=== PATIENT | female | born 1955 | race Caucasian/White ===

== ENCOUNTER 2017-11-01 07:41 | Day surgery (SDC) | payer OTHER, SELFPAY ==
[2017-10-30 12:14] VITALS: BMI 46.7
--- NOTE | 2017-11-01 | DI.RAD.S_ITS ---
PROCEDURE: XR CHEST 1V INDICATIONS: PORTACATH TECHNIQUE: One view of the chest was acquired. COMPARISON: None. FINDINGS: Surgical changes and devices: Left port a cath is present, with distal tip overlying Lungs and pleura: Mild appearance of increased pulmonary vascularity. Mediastinum: Mediastinal contours appear normal. Heart size is normal. Bones and chest wall: No suspicious bony lesions. Overlying soft tissues appear unremarkable. IMPRESSION: Left port a catheter as above. Mild increased pulmonary vascularity, consistent with edema. Dictated by: Charisse Parham M.D. on 11/01/2017 at 10:10 Approved by: Charisse Parham M.D. on 11/01/2017 at 10:21
[2017-11-01 08:31] VITALS: BP 159/82; PULSE 86; RESP 16; TEMP 36.2; O2SAT 99; BMI 46.7
[2017-11-01] MEDS: LACTATED RINGERS 1,000 ML 42 ML IV (08:43)
[2017-11-01] MEDS: levoFLOXacin 500 MG/100 ML PIGGYBACK 100 MG IV (09:05)
--- NOTE | 2017-11-01 09:24 | SUR.OPER ---
Supine on padded OR bed, head on pillow, arm padded and tucked at left side, right arm secured on padded armboard, legs uncrossed, safety belt at thigh, tape over blanket over lower legs .
[2017-11-01] MEDS: LIDOCAINE 1% W/EPI INJ 20 ML INJ (09:31)
[2017-11-01] MEDS: BUPIVACAINE 0.5% (PF) VIAL 30 ML INJ (09:32)
--- NOTE | 2017-11-01 09:39 | PM.OP.1 ---
Operative Date/Time/Diagnoses Date of procedure: 11/01/17 Time of procedure: 09:40 Pre-op diagnosis: Severe iron-deficiency anemia requiring iron infusion Post-op diagnosis: same Procedure & Clinicians Procedure: Left subclavian power port placement Same procedure as scheduled: Yes Indications: Severe iron deficiency anemia requiring IV iron infusion Surgeon: Sima Molina Anesthesia Type: General (Ahsaei) and Local Operative Notes Findings: Left subclavian Power port in good position in the superior vena cava Closure Type: primary Specimen(s): none sent Implants & Drains: Power port Estimated Blood Loss (mL): 5 Blood products transfused: none Procedure in detail: After obtaining informed consent, the patient was brought to the operating room and placed in the supine position on the operating table. Following successful induction of general endotracheal anesthesia, appropriate padding of all bony prominences, and placement of appropriate monitors, the left chest was prepped and draped in a standard surgical fashion. A timeout was held per SCOAP protocol. A mixture of local anesthetics was infiltrated in the deltopectoral groove on the left side. The right subclavian vein was accessed via the Seldinger technique and a wire was gently placed into the vein. Fluoroscopy was used to verify position of the wire in the subclavian vein. We next created a pocket of approximately 2 cm inferior to the access site of the vein. This was checked for size and found to fit the port nicely. The included tunneling device was used to place the tubing and the pocket connecting it to the access site of the subclavian vein. The tubing was trimmed to an appropriate length and connected to the Port-A-Cath. The Port-A-Cath was sewn into place in the pocket using interrupted Prolene sutures. The pocket was closed in 2 layers. The dilator and introducer were then gently passed over the wire and into the subclavian vein. The wire and dilator were removed leaving only the introducer. The tubing was then placed in the introducer and the introducer removed per iron guardrail installer's directions. The port was then flushed with saline solution and found to be functional and in good position. It was then hep-locked with 2000 units of heparin. The incision was closed in 2 layers with Vicryl and Monocryl sutures. Dermabond was applied to the skin. All sponge, needle, and instrument counts were correct at the conclusion of the case. Patient was allowed to awaken from anesthesia and taken to the post-anesthesia care unit in good condition. Complications: none Condition: stable Disposition: PACU Plan for aftercare: 1. Discharge to home 2. The port is ready for use
--- NOTE | 2017-11-01 09:41 | SUR.OPER ---
PATIENT HAS MULTIPLE OPEN SORES OVER BODY, DR. COPE AWARE
[2017-11-01 09:46] VITALS: BP 161/85; PULSE 78; RESP 14; TEMP 36.1; O2SAT 93
--- NOTE | 2017-11-01 09:46 | P.HP_ITS ---
History of Present Illness Date Patient Seen: 11/01/17 Time Patient Seen: 09:44 Chief complaint: [id number] PORTACATH PLACEMENT Narrative: Severe iron deficiency anemia requiring IV iron infusion. This is in the setting of a multiple severe medical problems and disabilities. Patient History Medical History Adrenal insufficiency (Yinka's disease) (Acute) Anxiety and depression (Acute) Arthritis (Acute) Blindness of right eye (Acute) CAD (coronary artery disease) (Acute) CHF (congestive heart failure) (Acute) Chronic back pain (Acute) Chronic sinusitis (Acute) DJD (degenerative joint disease) (Acute) Diabetes (Acute) Disorder of brainstem (Acute) Fatty liver (Acute) GERD (gastroesophageal reflux disease) (Acute) Wander's syndrome (Acute) Hx of migraine headaches (Acute) Hyperlipidemia (Acute) IBS (irritable bowel syndrome) (Acute) Low blood magnesium level (Acute) Polycystic ovary disease (Acute) Pulmonary hypertension (Acute) Ludmila's disease (Acute) Trigeminal neuropathy (Acute) Surgical History H/O laparoscopy (Acute) History of bilateral cataract extraction (Acute) History of bilateral knee arthroplasty (Acute) History of carpal tunnel surgery of right wrist (Acute) History of laparotomy (Acute) History of total hysterectomy with bilateral salpingo-oophorectomy (BSO) (Acute) Hx of appendectomy (Acute) Hx of cholecystectomy (Acute) Hx of hernia repair (Acute) Hx of sinus surgery (Acute) Family & Social History Family History: Reviewed 11/01/17 by Sima Molina MD Social History: household members none Tobacco & Substance use: Smoking Status Current every day smoker alcohol intake current Meds Home Medications Medication Instructions Recorded Confirmed Type aspirin 2 tab PO QID 10/30/17 11/01/17 History esomeprazole magnesium 40 mg PO DAILY 10/30/17 11/01/17 History fluoxetine 20 mg PO DAILY 10/30/17 11/01/17 History fluticasone [Flovent HFA] 1 puff INHALATION BID 10/30/17 11/01/17 History furosemide 40 mg PO DAILY 10/30/17 11/01/17 History glimepiride 1 - 2 mg PO QAM 10/30/17 11/01/17 History metformin 500 mg PO BID 10/30/17 11/01/17 History metoprolol tartrate 50 mg PO BID 10/30/17 11/01/17 History potassium chloride 20 meq PO DAILY 10/30/17 10/30/17 History pramipexole 1 - 2 tab PO BEDTIME PRN 10/30/17 10/30/17 History prednisone 20 mg PO DAILY 11/01/17 11/01/17 History Allergies Allergy/AdvReac Type Severity Reaction Status Date / Time droperidol Allergy Severe Weakness Verified 11/01/17 08:26 ibuprofen [From MOTRIN] Allergy Severe ANAPHALAXIS Verified 11/01/17 08:13 ketorolac Allergy Severe Anaphylaxis Verified 11/01/17 08:26 Cephalosporins Allergy Intermediate Hives Verified 11/01/17 08:20 clindamycin [CLINDAMYCIN] Allergy Intermediate HEADACHE Verified 11/01/17 08:13 cyclobenzaprine Allergy Intermediate crazy Verified 11/01/17 08:13 [From FLEXERIL] doxycycline [DOXYCYCLINE] Allergy Intermediate GI DISTRESS Unverified 07/12/17 12:01 erythromycin base Allergy Intermediate Hives Verified 11/01/17 08:26 etanercept Allergy Intermediate Nausea Verified 11/01/17 08:26 gabapentin [From NEURONTIN] Allergy Intermediate WEAKNESS Verified 11/01/17 08: 19 prochlorperazine Allergy Intermediate eps Verified 11/01/17 08:19 [From COMPAZINE] symptoms Sjulnhs-Bqe-Ans Reductase Allergy Intermediate Joint Pain Verified 11/01/17 08: 21 Inhibitor morphine [From MS CONTIN] AdvReac Intermediate RASH Verified 11/01/17 08:19 DURACEF Allergy Intermediate Hives Uncoded 11/01/17 08:19 EMBREL Allergy Intermediate Weakness Uncoded 11/01/17 08:19 METHELTREXATE Allergy Intermediate Weakness Uncoded 11/01/17 08:19 PEANUTS Allergy Unknown Anaphylaxis Uncoded 11/01/17 08:19 Review of Systems Review of Systems All systems reviewed & are unremarkable except as noted in HPI and below Exam Vital Signs (past 8 hours): - 11/01/17 08:31 Temperature 97.1 F L Pulse Rate 86 Respiratory Rate 16 Blood Pressure 159/82 H Pulse Oximetry 99 Oxygen Delivery Method Room Air Narrative Exam Narrative: Very ill-appearing 62-year-old lady who appears much older than her stated age. HEENT: Normocephalic and atraumatic Lungs: Essentially clear bilaterally Heart: Regular rate and rhythm Abdomen: Soft, obese, active bowel sounds Skin: Multiple open wounds all over her body. Patient reports she itches a lot and scratches a lot. Assessment & Plan Plan: Assessment/Plan Narrative: Severe iron deficiency anemia requiring iron infusion therapy. We discussed the risks and benefits of left subclavian port placement and the patient expressed a desire to have the procedure.
[2017-11-01 09:50] VITALS: BP 141/78; PULSE 75; RESP 14; O2SAT 93
[2017-11-01] MEDS: fentaNYL 100 MCG/2 ML INJ 50 MCG IV ×2 (09:52→09:58)
[2017-11-01 10:05] VITALS: BP 157/85; PULSE 73; RESP 14
[2017-11-01] MEDS: OXYCODONE/ACETAMINOPHEN 5/325 TABLET 1 TAB PO (10:06)
[2017-11-01] MEDS: ONDANSETRON 4 MG/2 ML INJ IV (10:15)
[2017-11-01 10:22] VITALS: BP 147/68; PULSE 68; RESP 16; TEMP 36.1; O2SAT 97
== END 2017-11-01 10:37 | disposition home or self-care (01) ==
PROVIDERS: PCP Family Medicine; Visit Provider Surgery
PROC: (CPT 36561; principal; 2017-11-01 08:45)
DX: D50.9 Iron deficiency anemia, unspecified (principal); Z45.2 Encounter for adjustment and management of vascular access device; E27.1 Primary adrenocortical insufficiency; I25.10 Atherosclerotic heart disease of native coronary artery without angina pectoris; I50.9 Heart failure, unspecified; E11.9 Type 2 diabetes mellitus without complications
CPT/HCPCS: 36561; 71045; 76000; C1788; J1720; J1956; J2405; J2704; J3010

== ENCOUNTER → 2018-03-26 08:14 | Outpatient (CLI) | payer OTHER, SELFPAY ==
--- NOTE | 2018-03-26 08:16 | DI.RAD.S_ITS ---
PROCEDURE: XR THORACIC SPINE 3V INDICATIONS: T 12 COMPRESSION FRACTURE TECHNIQUE: 3 views of the thoracic spine were acquired. COMPARISON: [facility], CT, CHEST ABDOMEN PELVIS WITH CONTRAST, 05/30/2010, 16:19. [facility], RG, CT ANGIOGRAPHY ABDOMEN AND PELVIS, 12/23/2017, 8:44. [facility], CT, ABDOMEN/PELVIS WITH CONTRAST, 11/18/2014, 14:05. [facility], CR, XR CHEST 1V, 11/01/2017, 9:50. FINDINGS: Bones: No acute fractures or dislocations. There is an anterior wedge deformity seen involving T13, with 50% loss of height anteriorly. No suspicious bony lesions. 13 pairs of ribs are noted, and appear intact where visualized. Degenerative changes are seen, with levels of upper irregularity and bridging endplate osteophytes. Soft tissues: No paravertebral stripe thickening. There is a left-sided chest port, with the tip overlying the mid superior vena cava. IMPRESSION: 13 pairs of ribs are seen. There is a 50% anterior wedge deformity seen at T13, as demonstrated on the prior outside CT examination. Age-appropriate degenerative changes are seen. Left-sided chest port. Dictated by: Andrzej Jefferson M.D. on 03/26/2018 at 8:21 Approved by: Andrzej Jefferson M.D. on 03/26/2018 at 8:28
--- NOTE | 2018-03-26 08:16 | DI.MRI.S_ITS ---
PROCEDURE: MR THORACIC SPINE WO CON INDICATIONS: T 12 COMPRESSION FRACTURE TECHNIQUE: Noncontrast sagittal T1 spine echo and T2 fast spin echo, sagittal STIR, axial T1 and T2 fast spin echo through the thoracic spine. An abbreviated protocol was used, secondary to patient pain. COMPARISON: [facility], CT, CHEST ABDOMEN PELVIS WITH CONTRAST, 05/30/2010, 16:19. [facility], CR, XR CHEST 1V, 11/01/2017, 9:50. [facility], RG, CT ANGIOGRAPHY ABDOMEN AND PELVIS, 12/23/2017, 8:44. [facility], CR, XR THORACIC SPINE 3V, 03/26/2018, 9:01. FINDINGS: Image quality: Excellent. Alignment and Curvature: There is normal bony alignment. Bone Marrow: Marrow is of normal overall signal. 13 pairs of ribs can be seen on prior imaging. There is a 50% compression deformity seen involving the anterior aspect of the T13 vertebral body. No bone marrow edema can be seen to suggest an acute fracture. There is posterior displacement of fracture fragments seen superiorly measuring 3 mm. No acute vertebral body compression fractures. Spinal Cord: Visualized spinal cord is normal in size and signal. Paraspinous Soft Tissues: No paravertebral masses. Miscellaneous: At the superior T13 level, there is moderate central canal narrowing, as on series 8 image 21. On axial images, central canal and foramina appear otherwise widely patent at all scanned levels. Several levels of bridging osteophytes can be seen. IMPRESSION: This patient has 13 pairs of ribs, which are better seen on prior imaging. The T13 level demonstrates a 50% anterior compression deformity, without acute features. 3 mm of posterior displacement of fracture fragments can be seen, with associated moderate central canal narrowing. Dictated by: Andrzej Jefferson M.D. on 03/26/2018 at 9:18 Approved by: Andrzej Jefferson M.D. on 03/26/2018 at 9:28
== END ==
PROVIDERS: PCP Internal Medicine; Visit Provider Physical Medicine & Rehabilitation
DX: S22.080A Wedge compression fracture of T11-T12 vertebra, initial encounter for closed fracture (principal)
CPT/HCPCS: 72072; 72146

== ENCOUNTER → 2018-07-03 08:09 | Outpatient (CLI) | payer OTHER, SELFPAY ==
--- NOTE | 2018-07-03 | DI.MRI.S_ITS ---
PROCEDURE: MR STROKE Pre- and post-contrast brain MRI, non-contrast brain MR angiogram, pre- and postcontrast neck MR angiogram INDICATIONS: TYPE II PARATRIGEMINAL SYNDROME TECHNIQUE: Brain: Noncontrast axial T1 spin echo, axial T2 fast spin echo, sagittal and axial FLAIR, coronal T2 fast spin echo, axial gradient echo, axial diffusion and ADC through the brain. After the administration of contrast, axial 3D VIBE of the cranial vasculature and brain. Brain MRA: Non-contrast 3-D time of flight MR angiogram, with multiple npnqpst-hjkmkbaaw-fqfdzvjmvg (MIP) reformats performed. Neck MRA: Axial and sagittal TruFISP through the neck. Coronal dynamic MR angiogram during administration of contrast in the arterial and venous phases, with 3-dimenstional vvfxoyc-glbwuopjt-regulfisiy (MIP) reformats constructed from subtraction images. COMPARISON: [facility], CT, HEAD AND NECK ANGIO, 10/23/2016, 11:34. [facility], MR, STROKE PROTOCOL, 10/23/2016, 14:42. FINDINGS: Image quality: Excellent. BRAIN: CSF spaces: Ventricles are normal in size and shape. Basal cisterns are patent. No extra-axial fluid collections. Brain: No intracranial bleeds or mass effects. Herron-white matter interface is normal. There is mild cerebral volume loss. Mild periventricular white matter chronic small vessel ischemic changes are present. Diffusion weighted images show no acute ischemic insults. Brainstem appears normal. Normal intravascular flow voids are present. No abnormal intracranial enhancement. Skull and face: Calvarial marrow signal is normal. Orbits appear normal. Sinuses: Sinuses and mastoids are clear. BRAIN MR ANGIOGRAM: Anterior circulation: Intracranial internal carotid arteries are normal in size and enhancement. The flow within the paired anterior cerebral arteries is normal and symmetric. The flow within the middle cerebral arteries is normal and symmetric. The anterior communicating artery is seen. No stenoses, occlusions, or aneurysms. Posterior circulation: The visualized portions of the vertebral arteries demonstrate normal caliber, and join to form a normal appearing basilar artery. The flow within the posterior cerebral arteries is normal and symmetric. No stenoses, occlusions, or aneurysms. NECK MR ANGIOGRAM: Carotids: Great vessels demonstrate a conventional anatomy as they arise from the aortic arch. The origins of the common carotid arteries appear patent. The calibers and courses of both common carotid arteries are normal. The bifurcation regions appear normal bilaterally. The internal carotid arteries demonstrate normal course and caliber. Posterior circulation: The origins of the vertebral arteries appear patent. More superior portions of both vertebral arteries demonstrate normal course and caliber, and join to form a normal appearing basilar artery. Miscellaneous: Subclavian arteries appear patent. Pre-contrast images through the neck show no soft tissue abnormalities. IMPRESSION: BRAIN MRI: 1. No acute intracranial abnormalities. 2. Cerebral volume loss and chronic microvascular ischemic changes. BRAIN MR ANGIOGRAM: 1. No high-grade stenosis or occlusion in anterior circulations. 2. No high-grade stenosis or occlusion in posterior circulations. NECK MR ANGIOGRAM: 1. Suboptimal visualization of carotid and vertebral artery origins. 2. No hemodynamic significant stenosis cervical carotid arteries bilaterally. 3. No hemodynamic significant stenosis in cervical vertebral arteries bilaterally. Dictated by: Trevon Olson M.D. on 07/03/2018 at 11:31 Approved by: Trevon Olson M.D. on 07/03/2018 at 17:56
== END ==
LOC: MRI 08:13
PROVIDERS: PCP Internal Medicine; Visit Provider Internal Medicine
DX: G50.8 Other disorders of trigeminal nerve (principal)
CPT/HCPCS: 70553; A9579

== ENCOUNTER → 2019-11-05 09:14 | Outpatient (CLI) | payer OTHER, SELFPAY ==
--- NOTE | 2019-11-05 | DI.MRI.S_ITS ---
PROCEDURE: MR LUMBAR SPINE WO CON INDICATIONS: LOW BACK PAIN TECHNIQUE: Noncontrast sagittal T1 spin echo and T2 fast echo, sagittal STIR, axial T1 and T2 fast spin echo through the lumbar spine. In cases with scoliosis, additional coronal T2 fast spin echo may be performed. COMPARISON: [facility][1], RG, CT L SPINE WITHOUT CONTRAST, 09/13/2017, 19:50. [facility], CT, CHEST ABDOMEN PELVIS WITH CONTRAST, 05/30/2010, 16:19. [facility], CR, XR THORACIC SPINE 3V, 03/26/2018, 9:01. [facility], MR, MR THORACIC SPINE WO CON, 03/26/2018, 8:41. FINDINGS: Image quality: This examination is limited by involuntary motion artifact. Alignment and Curvature: S-shaped scoliotic curvature is seen. There is minimal retrolisthesis at L2-3 and minimal anterolisthesis at L4-L5. Bone Marrow: Marrow is of normal overall signal. There is a stable anterior wedge deformity seen of the T 13 level, with 50% loss of height anteriorly. 3 mm posterior displacement of fracture fragments can be seen at this level. Scattered foci are seen, which are hyperintense on T1-weighted and T2-weighted imaging, which are most consistent with benign vertebral body hemangiomas. No acute vertebral body compression fractures. Spinal Cord: Conus medullaris terminates at the L1 level. Visualized cord demonstrates normal signal and size. Paraspinous Soft Tissues: No paravertebral masses. This patient has transitional lumbar anatomy. For the purposes of this examination, the level with the last well-developed disc space is considered to be L5-S1. This patient has 13 pairs of ribs as demonstrated on prior CT imaging. T12-T13: Moderate loss of disc height and disc signal can be seen. Mild to moderate disc bulge is seen. Moderate bilateral neural foraminal narrowing is seen, right worse than left. Mild to moderate central canal narrowing is seen. T13-L1: No significant abnormality is seen. L1-L2: Bridging endplate osteophytes are seen. L2-L3: The disc height is well-preserved. Loss of disc signal is seen at this level. Bridging endplate osteophytes are seen. Moderate generalized disc bulge is seen. Moderate facet joint hypertrophy is seen. There is mild left-sided and [id number] right-sided neural foraminal narrowing seen. Moderate central canal narrowing is seen. Mild progression compared to 2018. L3-L4: The disc height is well-preserved. Loss of disc signal is seen at this level. Bridging endplate osteophytes are seen. Moderate disc bulge is seen, which is eccentric to the left. Moderate prominent facet hypertrophy is seen. Brodie VIII flavum moderate to severe bilateral neural foraminal narrowing is seen. There is a degree of compression seen upon the exiting nerve roots. Moderate to severe central canal narrowing is seen. When comparison is made with the prior examination, these findings are similar. L4-L5: The disc height is well-preserved. Loss of disc signal is seen at this level. Moderate disc bulge is seen, which is eccentric to the right. There is a central disc protrusion. Prominent facet hypertrophy is seen. There is moderate to severe right-sided and at least moderate left-sided neural foraminal narrowing seen. There is a degree of compression seen upon the exiting nerve roots. At least moderate central canal narrowing is seen. When comparison is made with the prior examination, these findings are similar. L5-S1: The disc height is well-preserved. Loss of disc signal is seen at this level. Moderate disc bulge is seen, which is eccentric to the left. Moderate to severe facet hypertrophy is seen. There is moderate left-sided and moderate to severe right-sided neural foraminal narrowing seen. There is a degree of compression seen upon the exiting right L5 nerve root. At least moderate central canal narrowing is seen. When comparison is made with the prior examination, these findings are similar. IMPRESSION: Lumbar spine degenerative changes are seen, which are most prominent inferiorly. Remote T13 anterior wedge deformity. Mild dextroconvex scoliotic curvature. Transitional lumbar anatomy, with 13 pairs of ribs seen on prior imaging. Dictated by: Andrzej Jefferson M.D. on 11/05/2019 at 9:44 Approved by: Andrzej Jefferson M.D. on 11/05/2019 at 9:58
== END ==
PROVIDERS: PCP Internal Medicine; Referring Provider Physical Medicine & Rehabilitation; Visit Provider Physical Medicine & Rehabilitation
DX: M54.5 Low back pain (principal); R29.898 Other symptoms and signs involving the musculoskeletal system; M47.816 Spondylosis without myelopathy or radiculopathy, lumbar region; M41.86 Other forms of scoliosis, lumbar region; G89.29 Other chronic pain
CPT/HCPCS: 72148